=== PATIENT | male | born 1955 | race Caucasian/White ===

== ENCOUNTER → 2018-08-08 | Outpatient (CLI) | payer OTHER ==
[~2018-08-08] MED LIST: ACTONEL30 MG PO; AUGMENTIN 875875 M1 PO; ELAVIL PO; NEURONTIN 300300 M1 PO; PREVACID 30MG C30 M1 PO; SYNTHROID112 MCG PO
== END ==
LOC: RAD 08:46
DX: R05 Cough (principal); M81.0 Age-related osteoporosis without current pathological fracture; E03.9 Hypothyroidism, unspecified

== ENCOUNTER → 2018-08-14 | Outpatient (CLI) | payer OTHER | LOC: RAD 10:28 | DX: J18.9 Pneumonia, unspecified organism (principal) ==